=== PATIENT | male | born 1975 | race Caucasian/White ===

== ENCOUNTER 2021-08-07 16:00 | Emergency (ER) | payer BC ==
[~2021-08-07] VITALS: Ht 175.3 cm; Wt 90.7 kg
[2021-08-07 16:08] VITALS: BP_SYST 139
--- NOTE | 2021-08-07 16:10 | NUR ---
Pt to bed #3 coming from home ambulatory with steadt gait. Pt c/o LLQ abdominal pain that started this morning. Pt states pain gradually started to increase and currently pain is 8/10 non-radiating but is constant. No trauma. Pt has no chest pain and no sob. Denies n/v. A&Ox4. Allergic to Penicillin. No known medical conditions pt is aware of. VSS. Bed in lowest position.
--- NOTE | 2021-08-07 16:12 | NUR ---
ER at bedside examining patient.
--- NOTE | 2021-08-07 16:21 | NUR ---
body art technician at bedside.
--- NOTE | 2021-08-07 16:27 | NUR ---
Patient transported to radiology via ambulatory, accompanied by RAD.
[2021-08-07] MEDS ORDERED: KETOROLAC TROMETHAMINE 60 MG/2 ML VIAL IM ONE (16:30)
--- NOTE | 2021-08-07 16:35 | NUR ---
Returned from radiology, back to [facility].
--- NOTE | 2021-08-07 16:37 | NUR ---
Urinal at bedside. 2 cups of water provided to pt.
[2021-08-07 16:39] LABS: HEMATOCRIT 42.6 % (36-54)
[2021-08-07 16:52] LABS: BASOPHILS % (AUTO) 0.4 % (0.0-2.0); EOSINOPHILS # (AUTO) 0.1 K/uL (0.0-0.4); EOSINOPHILS % (AUTO) 1.7 % (0.0-4.0); HEMOGLOBIN 14.3 g/dL (14.0-18.0); LYMPHOCYTES # (AUTO) 1.1 K/uL (1.0-5.5); LYMPHOCYTES % (AUTO) 19.9 % (20.5-51.5); MEAN CORPUSCULAR HEMOGLOBIN 30 pg (27-31); MEAN CORPUSCULAR HGB CONC 34 % (32-36); MEAN CORPUSCULAR VOLUME 89 fL (79.0-98.0); MONOCYTES # (AUTO) 0.4 K/uL (0.0-1.0); MONOCYTES % (AUTO) 6.9 % (1.7-9.3); NEUTROPHILS # (AUTO) 3.9 K/uL (1.8-7.7); NEUTROPHILS % (AUTO) 71.1 % (40.0-70.0); PLATELET COUNT (AUTO) 216 K/uL (130-430); RED CELL DISTRIBUTION WIDTH 13.9 % (9.0-15.0); WHITE BLOOD COUNT (AUTO) 5.5 K/uL (4.8-10.8)
--- NOTE | 2021-08-07 17:11 | NUR ---
Urine specimen collected and sent to lab.
[2021-08-07 17:26] LABS: ALBUMIN 3.5 g/dL (3.4-4.8); CREATININE 1.06 mg/dL (0.55-1.30); TOTAL BILIRUBIN 0.9 mg/dL (0.0-1.0)
[2021-08-07 17:27] LABS: C-REACTIVE PROTEIN QUANT 0.4 mg/dL (0-0.5); POTASSIUM 4.1 mmol/L (3.5-5.1)
[2021-08-07] MEDS ORDERED: HYDR-3917 PO (17:37)
[2021-08-07] MEDS ORDERED: IBUP-1971 PO (17:37)
[2021-08-07 17:41] LABS: BILIRUBIN,URINE NEGATIVE (NEGATIVE); BLOOD, URINE 2+ (NEGATIVE); COLOR,URINE YELLOW (YELLOW); GLUCOSE,URINE NEGATIVE (NEGATIVE); KETONES,URINE NEGATIVE (NEGATIVE); LEUKOCYTE ESTERASE ,URINE NEGATIVE (NEGATIVE); NITRITE, URINE NEGATIVE (NEGATIVE); PH,URINE 7.5 (5.0-8.0); PROTEIN URINE NEGATIVE (NEGATIVE); UROBILINOGEN,URINE 0.2 (0.2-1.0)
[2021-08-07 17:43] VITALS: BP_SYST 132
--- NOTE | 2021-08-07 17:43 | NUR ---
Patient given written and verbal discharge instructions and verbalizes understanding. ER MD discussed with patient the results and treatment provided. Patient in stable condition. ID arm band removed. Rx of Ibuprofen & [place] given. Patient educated on pain management and to follow up with PMD. Pain Scale . Opportunity for questions provided and answered. Medication side effect fact sheet provided.
[2021-08-07 17:53] LABS: CLARITY/URINE HAZY (CLEAR)
[2021-08-07 18:18] LABS: BACTERIA,URINE MODERATE /HPF (None Seen); WBC,URINE 0-3 /HPF (0-3)
== END 2021-08-07 17:43 | disposition home or self-care (01) ==
LOC: SED 16:00
DX: N23 Unspecified renal colic (principal); Z79.899 Other long term (current) drug therapy
CPT/HCPCS: 36415; 74176; 76376; 80053; 81000; 82150; 83690; 85025; 86140; 87086; 96372; 99284; J1885

== ENCOUNTER 2021-11-05 03:20 | Emergency (ER) | payer BC ==
[~2021-11-05] VITALS: Ht 172.7 cm; Wt 90.7 kg
[~2021-11-05 03:20] MED LIST: HYDR-3917 PO; IBUP-1971 PO
[2021-11-05 03:25] VITALS: BP_SYST 120
[2021-11-05] MEDS ORDERED: MAG HYDROX/AL HYDROX/SIMETH 30 ML, DICYCLOMINE HCL 20 MG, LIDOCAINE VISCOUS 2% 15ML (PO... PO ONE ×3 (05:00)
[2021-11-05 05:48] LABS: BILIRUBIN,URINE NEGATIVE (NEGATIVE); CLARITY/URINE CLEAR (CLEAR); COLOR,URINE YELLOW (YELLOW); GLUCOSE,URINE NEGATIVE (NEGATIVE); KETONES,URINE NEGATIVE (NEGATIVE); LEUKOCYTE ESTERASE ,URINE NEGATIVE (NEGATIVE); NITRITE, URINE NEGATIVE (NEGATIVE); PROTEIN URINE NEGATIVE (NEGATIVE)
[2021-11-05 05:50] LABS: BLOOD, URINE TRACE (NEGATIVE)
[2021-11-05 05:59] LABS: BACTERIA,URINE MODERATE /HPF (None Seen); RBC,URINE 0-3 /HPF (0-3); URINE AMORPHOUS PHOSPHATES 2+ /HPF (None Seen); WBC,URINE 0-3 /HPF (0-3)
[2021-11-05 06:21] LABS: BASOPHILS % (AUTO) 0.3 % (0.0-2.0); EOSINOPHILS % (AUTO) 0.3 % (0.0-4.0); HEMATOCRIT 41.2 % (36-54); HEMOGLOBIN 14.1 g/dL (14.0-18.0); LYMPHOCYTES # (AUTO) 0.7 K/uL (1.0-5.5); LYMPHOCYTES % (AUTO) 5.6 % (20.5-51.5); MEAN CORPUSCULAR HEMOGLOBIN 30 pg (27-31); MEAN CORPUSCULAR HGB CONC 34 % (32-36); MEAN CORPUSCULAR VOLUME 88 fL (79.0-98.0); MONOCYTES # (AUTO) 0.7 K/uL (0.0-1.0); MONOCYTES % (AUTO) 5.6 % (1.7-9.3); NEUTROPHILS # (AUTO) 11.5 K/uL (1.8-7.7); NEUTROPHILS % (AUTO) 88.2 % (40.0-70.0); PLATELET COUNT (AUTO) 230 K/uL (130-430); RED BLOOD CELL COUNT(AUTO) 4.68 MIL/uL (4.2-6.2); RED CELL DISTRIBUTION WIDTH 13.7 % (9.0-15.0)
[2021-11-05 06:30] LABS: CALCIUM 8.9 mg/dL (8.4-11.0); CREATININE 1.04 mg/dL (0.55-1.30); POTASSIUM 3.7 mmol/L (3.5-5.1)
[2021-11-05 06:36] LABS: ALBUMIN 3.3 g/dL (3.4-4.8); TOTAL BILIRUBIN 1.2 mg/dL (0.0-1.0)
[2021-11-05] MEDS ORDERED: OMEP40CA20 PO (07:02)
[2021-11-05] MEDS ORDERED: DICY10CA13 PO (07:02)
[2021-11-05] MEDS ORDERED: ONDA-8 TL (07:02)
[2021-11-05 07:20] VITALS: BP_SYST 136
== END 2021-11-05 07:23 | disposition home or self-care (01) ==
LOC: SED 03:20
DX: K29.00 Acute gastritis without bleeding (principal); D72.829 Elevated white blood cell count, unspecified; R11.0 Nausea; Z88.0 Allergy status to penicillin; Z79.899 Other long term (current) drug therapy
CPT/HCPCS: 99284; 80053; 81000; 83690; 85025; 87086; 36415; 74021; J2001

== ENCOUNTER 2021-12-20 20:46 | Emergency (ER) | payer BC ==
[~2021-12-20] VITALS: Ht 177.8 cm; Wt 90.7 kg
[~2021-12-20 20:46] MED LIST changes: +DICY10CA13 PO; +OMEP40CA20 PO; +ONDA-8 TL
[2021-12-20 20:51] VITALS: BP_SYST 188
--- NOTE | 2021-12-20 21:05 | NUR ---
Pt came from home with c/o of LLQ pain that started today at 1800. Pt reports pain subsided when he arrived to ED. Pt denies N/V, diarrhea, and denies blood in the urine. Pt states thats he had a kidney stone in July and lopez not passed it. Safety precautions in place and connected to monitor tech.
--- NOTE | 2021-12-20 21:20 | NUR ---
Dr. Mo at bedside with patient for evaluation.
--- NOTE | 2021-12-20 21:25 | NUR ---
BP of 186/124 on right upper arm and 197/135 on left upper arm[address] Dr. Mo made aware. Awaiting orders.
[2021-12-20 21:26] LABS: BILIRUBIN,URINE NEGATIVE (NEGATIVE); BLOOD, URINE 1+ (NEGATIVE); CLARITY/URINE CLEAR (CLEAR); COLOR,URINE YELLOW (YELLOW); GLUCOSE,URINE NEGATIVE (NEGATIVE); KETONES,URINE NEGATIVE (NEGATIVE); LEUKOCYTE ESTERASE ,URINE NEGATIVE (NEGATIVE); NITRITE, URINE NEGATIVE (NEGATIVE); PH,URINE 7.5 (5.0-8.0); PROTEIN URINE NEGATIVE (NEGATIVE); UROBILINOGEN,URINE 0.2 (0.2-1.0)
[2021-12-20] MEDS ORDERED: cloNIDine HCL 0.1 MG TABLET PO ONE (21:30)
[2021-12-20 21:32] LABS: BACTERIA,URINE FEW /HPF (None Seen); RBC,URINE 0-3 /HPF (0-3); URINE AMORPHOUS PHOSPHATES 1+ /HPF (None Seen); WBC,URINE 0-3 /HPF (0-3)
[2021-12-20 21:33] LABS: MUCUS,URINE None Seen /LPF (None Seen)
--- NOTE | 2021-12-20 21:33 | NUR ---
BP now 184/119. Confirmed order of Clonidine Hydrochloride [address] Mo agreed to give medication as order.
[2021-12-20] MEDS ORDERED: cloNIDine HCL 0.1 MG TABLET ONE (21:35)
--- NOTE | 2021-12-20 21:37 | NUR ---
Dr. Mo changed order to Clonidine Hydrochloride 0.2 mg.
--- NOTE | 2021-12-20 21:39 | NUR ---
Pt refused medication administration of Clonidine Hydrochloride 0.2mg. Pt stated "I came here for a pain shot but Im not in pain anymore. I dont want to take that medication." Pt educated on risks of high blood pressure, however pt still refused.
[2021-12-20] MEDS ORDERED: HYDR-3917 PO (21:44)
[2021-12-20] MEDS ORDERED: IBUP-1971 PO (21:44)
--- NOTE | 2021-12-20 21:45 | NUR ---
Patient does not wish to proceed with medical care recommended by Dr. Mo. Patient given information related to possible complications, up to and including , which could occur as a result of leaving hospital at this time. Patient verbalizes understanding of risks involved leaving against medical advice. Patient has signed AMA form.
[2021-12-20 22:06] LABS: BASOPHILS % (AUTO) 0.5 % (0.0-2.0); EOSINOPHILS # (AUTO) 0.1 K/uL (0.0-0.4); EOSINOPHILS % (AUTO) 0.9 % (0.0-4.0); HEMOGLOBIN 14.2 g/dL (14.0-18.0); LYMPHOCYTES # (AUTO) 0.8 K/uL (1.0-5.5); LYMPHOCYTES % (AUTO) 10.6 % (20.5-51.5); MEAN CORPUSCULAR HEMOGLOBIN 30 pg (27-31); MEAN CORPUSCULAR HGB CONC 34 % (32-36); MEAN CORPUSCULAR VOLUME 88 fL (79.0-98.0); MONOCYTES # (AUTO) 0.5 K/uL (0.0-1.0); MONOCYTES % (AUTO) 6.4 % (1.7-9.3); NEUTROPHILS # (AUTO) 6.4 K/uL (1.8-7.7); NEUTROPHILS % (AUTO) 81.6 % (40.0-70.0); PLATELET COUNT (AUTO) 235 K/uL (130-430); RED BLOOD CELL COUNT(AUTO) 4.76 MIL/uL (4.2-6.2); RED CELL DISTRIBUTION WIDTH 13.9 % (9.0-15.0); WHITE BLOOD COUNT (AUTO) 7.9 K/uL (4.8-10.8)
[2021-12-20 22:20] LABS: ANION GAP 6 (5-15); CALCIUM 9.5 mg/dL (8.4-11.0); CHLORIDE 102 mmol/L (98-107); CREATININE 1.17 mg/dL (0.55-1.30); GLUCOSE 110 mg/dL (70-99); SODIUM SERUM 141 mmol/L (136-145); UREA NITROGEN, BLOOD 15 mg/dL (8-21)
[2021-12-20 22:23] LABS: GFR AFRICAN AMERICAN 87 mL/min (>90)
[2021-12-20 22:34] LABS: ALANINE AMINOTRANSFERASE 38 U/L (12-78); ALBUMIN 3.9 g/dL (3.4-4.8); ASPARTATE AMINOTRANSFERASE 16 U/L (10-37)
[2021-12-20 23:06] LABS: C-REACTIVE PROTEIN QUANT < 0.2 mg/dL (0-0.5)
== END 2021-12-20 21:50 | disposition left against medical advice (07) ==
LOC: SED 20:46
DX: R10.32 Left lower quadrant pain (principal); Z88.0 Allergy status to penicillin; Z79.899 Other long term (current) drug therapy
CPT/HCPCS: 36415; 76376; 80053; 81000; 83605; 85025; 86140; 99284

== ENCOUNTER 2022-04-17 20:55 | Emergency (ER) | payer SELFPAY ==
[~2022-04-17] VITALS: Ht 172.7 cm; Wt 90.7 kg
[2022-04-17 21:05] VITALS: BP_SYST 147
--- NOTE | 2022-04-17 21:16 | NUR ---
PT HERE C/O HIGH BLOOD PRESSURE PER PT REPORTS FOR COUPLE OF DAYS NOW. PER PT HE ALSO HAVE COUGH AND CONGESTION AND COVID POSITIVE X2 DAYS. DENIES FEVER AT THIS TIME. PT DENIES DIZZINESS AND HEADACHE, DENIES BLURRY VISION. PT STATED HE WAS DIAGNOSED WITH HYPERTENSION AND HE STATED SHE DID NOT GET HIS PRESCRIPTED MEDS. PMH:HTN PT AAOX4, NO SOB NOTED AND NAD. PENDING MD GUILLERMO. ISOLOTATION PREACAUTION INIATED.
--- NOTE | 2022-04-17 22:27 | NUR ---
Patient left without being seen.
== END 2022-04-17 22:27 | disposition left against medical advice (07) ==
LOC: SED 20:55
DX: U07.1 COVID-19 (principal); R05.9 Cough, unspecified; R09.81 Nasal congestion; Z53.21 Procedure and treatment not carried out due to patient leaving prior to being seen by health care provider